=== PATIENT | male | born 1955 | race Caucasian/White ===

== ENCOUNTER → 2021-12-14 | Day surgery (SDC) | payer MEDICARE ==
[~2021-12-14] VITALS: Ht 175.3 cm; Wt 93.0 kg
[~2021-12-14] MED LIST: AMARYL2 MG PO; AMBIEN10 MG PO; ASPIRIN EC81 MG PO; ATARAX25 MG PO; COLESTIPOL HCL1 GM PO; HYDROCODON-ACE1 EAC6 PO; LIPITOR40 MG PO; MELOXICAM15 MG PO; METFORMIN HCL500 MG PO; MOBIC7.5 MG PO; NEURONTIN400 MG PO; PREGABALIN300 MG PO; PRILOSEC20 MG PO; PRINIVIL10 MG PO; SYNTHROID100 MCG PO; VENTOLIN HFA IN18 GM INH
== END | disposition home or self-care (01) ==
LOC: FAS 06:27
DX: K92.1 Melena (principal); K52.9 Noninfective gastroenteritis and colitis, unspecified; K62.6 Ulcer of anus and rectum; K62.89 Other specified diseases of anus and rectum; K52.89 Other specified noninfective gastroenteritis and colitis; K21.9 Gastro-esophageal reflux disease without esophagitis; M19.90 Unspecified osteoarthritis, unspecified site; I10 Essential (primary) hypertension; E78.00 Pure hypercholesterolemia, unspecified; E03.9 Hypothyroidism, unspecified; E66.9 Obesity, unspecified; E11.9 Type 2 diabetes mellitus without complications; Z80.0 Family history of malignant neoplasm of digestive organs; Z79.82 Long term (current) use of aspirin; Z72.0 Tobacco use; Z68.29 Body mass index [BMI] 29.0-29.9, adult
CPT/HCPCS: J2704; J7120